=== PATIENT | female | born 1960 | race Caucasian/White ===

== ENCOUNTER → 2018-05-23 | Outpatient (CLI) | payer BC ==
[~2018-05-23] MED LIST: CATHETER FLUSH 10 ML SYR IV PRN
[2018-05-23 08:12] VITALS: BP 139/98
--- NOTE | 2018-05-23 15:00 | STRESS TEST ---
DATE OF SERVICE: 05/23/2018 NUCLEAR MYOVIEW REPORT REFERRING PHYSICIAN: Dr. Mohan. SUMMARY: The patient was injected with 10.09 mCi of technetium-99 Myoview and the resting images were obtained. With peak stress level, 32.6 mCi of technetium-99 were injected and the stress images were acquired, the resting and stress images were reviewed and compared in the short axis, horizontal long axis and vertical long axis views. Review of the images showed good radiotracer uptake with no significant ischemia or infarction. SSS is 3, SDS 3 and TID value 0.9. On the gated images, the left ventricle appeared to be in normal size with normal contractility. Calculated ejection fraction of 85%. CONCLUSION: 1. No ischemia or infarction on SPECT images. 2. Normal left ventricular size and contractility, calculated ejection fraction of 85%. Job ID: [id number] DocumentID: [id number] Dictated Date: 05/23/2018 12:45:05 Public Address Announcer Date: 05/23/2018 15:00:06 Dictated By: PATRICK BARROW MD
== END ==
LOC: CARD 06:43
PROVIDERS: ATTEND Nurse Practitioner Family
DX: R07.89 Other chest pain (principal); R53.83 Other fatigue
CPT/HCPCS: 78452; 93017